=== PATIENT | male | born 1975 | race Caucasian/White ===

== ENCOUNTER 2018-10-20 00:37 | Emergency (ER) | payer MEDICAID ==
[~2018-10-20] VITALS: Ht 185.4 cm; Wt 74.8 kg
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
--- NOTE | 2018-10-20 01:00 | NUR ---
DR. SHEN IS AT THE BEDSIDE WITH ED STEAM PRESSER, KYARA RN, [place] EMT. PT LOG ROLLED FOR .
--- NOTE | 2018-10-20 01:38 | NUR ---
PT IS IN CT.
--- NOTE | 2018-10-20 01:41 | NUR ---
[employer] ARRIVED TO SPEAK WITH THE PT. PT IS IN CT.
--- NOTE | 2018-10-20 01:58 | NUR ---
PT RETURNED FROM CT.
--- NOTE | 2018-10-20 02:07 | NUR ---
[employer] LEFT.
--- NOTE | 2018-10-20 02:13 | NUR ---
PT'S , MANFRED, IS AT THE BEDSIDE.
--- NOTE | 2018-10-20 02:59 | NUR ---
PER PT'S , MANFRED, CALLED [facility]. [facility] [id number] [address] RESERVATION #: [id number]
[2018-10-20] MEDS ORDERED: IBUPROFEN 600 MG TABLET PO ONE ×2 (03:00→03:08)
[2018-10-20] MEDS ORDERED: HYDROCODONE/APAP 10/325MG 1 EA TABLET PO ONE (03:00)
[2018-10-20] MEDS ORDERED: HYDROCODONE/APAP 10/325MG 1 EA TABLET ONE (03:08)
--- NOTE | 2018-10-20 03:28 | NUR ---
PT AMBULATED TO THE BATHROOM WITH A STEADY GAIT.
--- NOTE | 2018-10-20 03:46 | NUR ---
Patient discharged to home in stable condition. Written and verbal after care instructions given. Patient verbalizes understanding of instruction AND RX. PT IS WAITING FOR P/U TO HOME. PT IS WEARING THE C-COLLAR HOME, PER DR. SHEN, AND THEN HE IS SWITCHING TO HIS POST OPERATIVE COLLAR. PT TO F/U WITH HIS SURGEON. ISABEL.
--- NOTE | 2018-10-20 03:56 | NUR ---
PT AMBULATED OUT TO THE [facility].
[2018-10-20 04:08] VITALS: BP 126/75
== END 2018-10-20 03:56 | disposition home or self-care (01) ==
LOC: ER 00:41
DX: S16.1XXA Strain of muscle, fascia and tendon at neck level, initial encounter (principal); S09.8XXA Other specified injuries of head, initial encounter; F31.9 Bipolar disorder, unspecified; Z98.890 Other specified postprocedural states; Z60.2 Problems related to living alone; V49.49XA Driver injured in collision with other motor vehicles in traffic accident, initial encounter; Y93.89 Activity, other specified; Y92.413 State road as the place of occurrence of the external cause; Y99.8 Other external cause status
CPT/HCPCS: 70450-TC; 72125-TC; 72128-TC